=== PATIENT | female | born 1970 | race Caucasian/White ===

== ENCOUNTER 2017-08-28 09:25 | Emergency (ER) | payer BC ==
[~2017-08-28] VITALS: Ht 167.6 cm; Wt 78.0 kg
[2017-08-28 09:32] VITALS: BP 135/92
[2017-08-28] MEDS ORDERED: NEOMYCIN-BACITRACIN-POLYM UNITDOSE PKG TOP OINT TOP ONE (10:15)
== END 2017-08-28 10:13 | disposition home or self-care (01) ==
LOC: ER 09:25
DX: S51.832A Puncture wound without foreign body of left forearm, initial encounter (principal); Z88.6 Allergy status to analgesic agent; W54.0XXA Bitten by dog, initial encounter; Y93.89 Activity, other specified; Y99.8 Other external cause status; Y92.89 Other specified places as the place of occurrence of the external cause